=== PATIENT | female | born 1970 | race Caucasian/White ===

== ENCOUNTER 2016-09-23 04:47 | Emergency (ER) | payer OTHER ==
--- NOTE | 2016-09-23 06:50 | DIAGNOSTIC IMAGING REPORT ---
PROCEDURE: CT ABD/PELVIS WITH CONTRAST CLINICAL INDICATION: Epigastric pain x 2 days, initial encounter TECHNIQUE: 95 ml of Isovue 300 were injected intravenously and axial images were obtained of the entire abdomen and pelvis with sagittal and coronal reformations. COMPARISON: None. FINDINGS: ABDOMEN: Fluid in the ascending and transverse colon with multiple nondilated fluid filled loops of small bowel suggestive of enterocolitis. Lung bases are clear. Heart size is normal. Liver, gallbladder, pancreas, spleen, left adrenal gland and both kidneys are normal. 2.5 cm right adrenal low-density mass with dense peripheral calcification. Normal abdominal aorta. PELVIS: Normal appendix. Normal uterus and bladder. Involuting 1.5 cm left ovarian cyst and a small amount of free fluid the pelvis. Severe L5-S1 disc space narrowing. IMPRESSION: 1. Findings suggestive of enterocolitis 2. 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 Involuting left ovarian cyst with small amount of free fluid in the pelvis 4. Results discussed with Dr. Gutierrez All CT scans at this facility use dose modulation, iterative reconstruction, and/or weight-based dosing when appropriate to reduce radiation dose to as low as reasonably achievable.
--- NOTE | 2016-09-23 07:36 | ED NURSING NOTES ---
Clinical Report - Nurses [facility] [address] [place] [address] 09/23/2016 4:50 Patient: SHERRI ULLOA TRIAGE Triage time 04:55. Acuity: LEVEL 3. Chief Complaint: ABDOMINAL PAIN and NAUSEA. Alert. --04:58 Susan Hope R.N. 04:55 09/23/16. BP: 143/85. HR: 106. RR: 16. O2 saturation: 100% on room air. Temp: 98.4 F (oral). Pain level now: 5/10. Pain level at maximum: 9/10. Describes the quality as well localized. --04:58 Susan Hope R.N. Weight: 58.9 kg stated. Height/Length: 64 inches Per Patient. BMI: 22.3. --04:57 Susan Hope R.N. Medications Multivitamins Oral. --04:56 Susan Hope R.N. Allergies No Known Drug Allergy. --04:56 Susan Hope R.N. History Arrived by private vehicle. Historian: patient. Primary physician (Bud). This started yesterday. Onset. (at about 0900). 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 (last dose today at 0300). PAST MEDICAL HX: Immunizations: up-to-date. Last normal menstrual period- Sep 03. Has not received seasonal influenza immunization. SOCIAL HX: Never smoker. Occasional alcohol use. No drug use. NUTRITIONAL RISK ASSESSMENT: The nutritional risk assessment revealed no deficiencies. FUNCTIONAL ASSESSMENT: Functional assessment: no impairments noted. --04:58 Susan Hope R.N. ADDITIONAL SURGERIES: Rt breast lump--benign. --04:56 Susan Hope R.N. Interventions ID band on patient. To treatment room. --04:58 Susan Hpoe R.N. PHYSICAL ASSESSMENT Ambulatory to room. Patient gowned. GENERAL / NEURO / PSYCH: Alert. Oriented X 4. Appears in pain. RESPIRATORY: Respirations not labored. CVS: Capillary refill less than 2 seconds. SKIN: Skin is warm and dry. --04:59 Susan Hope R.N. NURSING PROGRESS NOTES Head of bed elevated. Two patient identifiers checked. Call light placed in reach. Side rails up x 1. Bed placed in lowest position. Brakes of bed on. --04:59 Susan Hope R.N. Patient ready for evaluation- notification provided. --05:00 Susan Hope R.N. 05:15 09/23/2016 Site #1 started via IV in the right forearm with an 20g angiocath, with aseptic technique and good blood return; one attempt. Blood drawn: rainbow set. Labeled in the presence of the patient and sent to the lab. Saline lock flushed with 10 mL saline (started by TONEY Whatley). --05:23 Susan Hope R.N. 05:18 09/23/2016 Started bag #1 1000 mL IV Fluids IV NS (Saline); at 1000 mL/hr over 1 hour(s) via site #1 via IV pump. Allergies verified and confirmed 5 rights. IV patency established. IV site checked: no pain, redness, or swelling. IV flushed thoroughly pre- and post-medication administration. --05:24 Susan Hope R.N. 05:19 09/23/2016 Zofran (Ondansetron HCl) IVP 8 mg given over 1 minute(s) via site #1. Allergies verified and confirmed 5 rights. IV patency established. IV site checked: no pain, redness, or swelling. IV flushed thoroughly pre- and post-medication administration. IVP given by RN. --05:24 Susan Hope R.N. 05:20 09/23/2016 Toradol IVP 30 mg given over 1 minute(s) via site #1. Allergies verified and confirmed 5 rights. IV patency established. IV site checked: no pain, redness, or swelling. IV flushed thoroughly pre- and post-medication administration. IVP given by RN. --05:25 Susan Hope R.N. 05:21 09/23/2016 Dilaudid (HYDROmorphone HCl PF) IVP 1 mg given over 1 minute(s) via site #1. Allergies verified, confirmed 5 rights and sedative warning given to the patient. IV patency established. IV site checked: no pain, redness, or swelling. IV flushed thoroughly pre- and post-medication administration. IVP given by RN. --05:25 Susan Hope R.N. Patient transported to [place] by stretcher with tech. --05:59 Susan Hope R.N. 06:35 09/23/16. BP: 99/56. HR: 71. RR: 15. O2 saturation: 98% on room air. Cao-Kerr pain scale: 11/01. --06:35 Susan Hope R.N. 06:36 09/23/2016 IV Fluids IV NS Discontinued: bag #1 completed. Total amount infused: 1000 mL. IV patency established. IV site checked: no pain, redness, or swelling. IV flushed thoroughly. --06:36 Susan Hope R.N. 07:08 09/23/16. Care transferred and report received. --07:08 Sebastian Fermin R.N. 07:13 09/23/16. BP: 109/63. HR: 71. RR: 12. O2 saturation: 100% on room air. --07:14 Sebastian Fermin R.N. 07:14 09/23/16. --07:14 Sebastian Fermin R.N. 07:15 09/23/2016 Levaquin (Levofloxacin) PO 500 mg given. Allergies verified and confirmed 5 rights. --07:15 Sebastian Fermin R.N. 07:15 09/23/2016 Flagyl (MetroNIDAZOLE) PO 500 mg given. Allergies verified and confirmed 5 rights. --07:15 Sebastian Fermin R.N. 07:46 09/23/16. Checked patient name and birthdate: patient confirmed. Clean catch urine collected with return of yellow-colored clear urine; sample sent to lab. Specimen labeled in the presence of the patient. --07:46 Magaly Barrett R.N. 07:50 09/23/2016 Site #1 removed upon discharge. Catheter intact. Manual pressure and bandage applied. --19:50 Magaly Barrett R.N. DISPOSITION / DISCHARGE Departure time: 749Sep 23 2016. Condition at departure: improved and stable. No learning barriers present. Reviewed medication(s) side effects, precautions and dosing information. Prescription(s) given to the patient. Patient verbalized understanding. Written instructions provided in Armenian. The patient was discharged by the physician. She was discharged home and accompanied by sales communications manager. She left the Emergency Department ambulatory and via private vehicle. Adhesive Bandage Making Operator driving. --09:15 Magaly Barrett R.N. 09:14 09/23/16. BP: 98/60. HR: 66. RR: 12. O2 saturation: 100% on room air. Temp: 98.4 F (oral). Pain level now: 11/01. --09:15 Magaly Barrett R.N. Locked/Released at 09/23/2016 19:51 by Magaly Barrett R.N.
--- NOTE | 2016-09-23 07:36 | ED ORDER SUMMARY ---
..... Patient: SHERRI ULLOA OrderSheet [facility] VisitID: [id number] [address] [place] [address] 45y, F Registration Date/Time: 09/23/2016 ORDER SHEET Weight: 58.9 kg (stated) Allergies: No Known Drug Allergy GENERAL ORDERS: CT Abd/Pel w Cont (No) (N/A) Urgent (05:09/23/2016 Brianne VITAL) (Ack 5:21 JIurca ER Tech1) (6:12 RCollier R.N.) CBC w Diff Urgent (05:09/23/2016 Brianne VITAL) (Ack 5:21 JIurca ER Tech1) (6:12 RCollier R.N.) CMP Urgent (05:09/23/2016 Brianne VITAL) (Ack 5:21 JIurca ER Tech1) (6:12 RCollier R.N.) UA-Culture if indicated Urgent (05:09/23/2016 Brianne VITAL) (Ack 5:21 JIurca ER Tech1) (7:44 MWinterer R.N.) Amylase Urgent (05:09/23/2016 Brianne VITAL) (Ack 5:21 JIurcpark ER Tech1) (6:12 RCollier R.N.) Lipase Urgent (:09/23/2016 Brianne VITAL) (Ack 5:21 JIurca ER Tech1) (6:12 RCollier R.N.) Urine Urgent (:09/23/2016 Brianne VITAL) (Ack 5:21 JIurca ER Tech1) (7:44 MWinterer R.N.) MEDICATION ORDERS: Levaquin PO 500 mg (NOW) (06:09/23/2016 Brianne VITAL) (Ack 7:08 JBoardley R.N.) (7:15 JBoardley R.N.) Flagyl PO 500 mg (NOW) (:09/23/2016 Brianne VITAL) (Ack 7:08 JBoardley R.N.) (7:15 JBoardley R.N.) IV FLUIDS: IV NS : initial bolus 1000 mL (1000 mL/hr), then none - (NOW) (05:09 09/23/2016 Brianne VITAL) (Ack 5:12 RCollier R.N.) (5:24 RCollier R.N.) Toradol IV 30 mg (NOW) (05:09/23/2016 Brianne VITAL) (Ack 5:12 RCollier R.N.) (5:25 RCollier R.N.) Dilaudid IV 1 mg (HIGH ALERT MEDICATION, NOW) (05:09/23/2016 Brianne VITAL) (Ack 5:12 RCollier R.N.) (5:25 RCollier R.N.) Zofran IV 8 mg (NOW) (05:09/23/2016 Brianne VITAL) (Ack 5:12 RCollier R.N.) (5:24 RCollier R.N.) ORDER SHEET NOTES: [Electronically signed by Magaly Barrett R.N. (19:51 09/23/2016)] [Electronically signed by Nano Gutierrez MD (10:19 09/30/2016)] [Electronically locked/signed by Magaly Barrett R.N. (19:51 09/23/2016)]
--- NOTE | 2016-09-23 07:36 | ED NURSING NOTES ---
Clinical Report - Nurses [facility] [address] [place] [address] 09/23/2016 4:50 Patient: SHERRI ULLOA TRIAGE Triage time 04:55. Acuity: LEVEL 3. Chief Complaint: ABDOMINAL PAIN and NAUSEA. Alert. --04:58 Susan Hope R.N. 04:55 09/23/16. BP: 143/85. HR: 106. RR: 16. O2 saturation: 100% on room air. Temp: 98.4 F (oral). Pain level now: 5/10. Pain level at maximum: 9/10. Describes the quality as well localized. --04:58 Susan Hope R.N. Weight: 58.9 kg stated. Height/Length: 64 inches Per Patient. BMI: 22.3. --04:57 Susan Hope R.N. Medications Multivitamins Oral. --04:56 Susan Hope R.N. Allergies No Known Drug Allergy. --04:56 Susan Hope R.N. History Arrived by private vehicle. Historian: patient. Primary physician (Bud). This started yesterday. Onset. (at about 0900). 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 (last dose today at 0300). PAST MEDICAL HX: Immunizations: up-to-date. Last normal menstrual period- Sep 03. Has not received seasonal influenza immunization. SOCIAL HX: Never smoker. Occasional alcohol use. No drug use. NUTRITIONAL RISK ASSESSMENT: The nutritional risk assessment revealed no deficiencies. FUNCTIONAL ASSESSMENT: Functional assessment: no impairments noted. --04:58 Susan Hope R.N. ADDITIONAL SURGERIES: Rt breast lump--benign. --04:56 Susan Hope R.N. Interventions ID band on patient. To treatment room. --04:58 Susan Hope R.N. PHYSICAL ASSESSMENT Ambulatory to room. Patient gowned. GENERAL / NEURO / PSYCH: Alert. Oriented X 4. Appears in pain. RESPIRATORY: Respirations not labored. CVS: Capillary refill less than 2 seconds. SKIN: Skin is warm and dry. --04:59 Susan Hope R.N. NURSING PROGRESS NOTES Head of bed elevated. Two patient identifiers checked. Call light placed in reach. Side rails up x 1. Bed placed in lowest position. Brakes of bed on. --04:59 Susan Hope R.N. Patient ready for evaluation- notification provided. --05:00 Susan Hope R.N. 05:15 09/23/2016 Site #1 started via IV in the right forearm with an 20g angiocath, with aseptic technique and good blood return; one attempt. Blood drawn: rainbow set. Labeled in the presence of the patient and sent to the lab. Saline lock flushed with 10 mL saline (started by TONEY Whatley). --05:23 Susan Hope R.N. 05:18 09/23/2016 Started bag #1 1000 mL IV Fluids IV NS (Saline); at 1000 mL/hr over 1 hour(s) via site #1 via IV pump. Allergies verified and confirmed 5 rights. IV patency established. IV site checked: no pain, redness, or swelling. IV flushed thoroughly pre- and post-medication administration. --05:24 Susan Hope R.N. 05:19 09/23/2016 Zofran (Ondansetron HCl) IVP 8 mg given over 1 minute(s) via site #1. Allergies verified and confirmed 5 rights. IV patency established. IV site checked: no pain, redness, or swelling. IV flushed thoroughly pre- and post-medication administration. IVP given by RN. --05:24 Susan Hope R.N. 05:20 09/23/2016 Toradol IVP 30 mg given over 1 minute(s) via site #1. Allergies verified and confirmed 5 rights. IV patency established. IV site checked: no pain, redness, or swelling. IV flushed thoroughly pre- and post-medication administration. IVP given by RN. --05:25 Susan Hope R.N. 05:21 09/23/2016 Dilaudid (HYDROmorphone HCl PF) IVP 1 mg given over 1 minute(s) via site #1. Allergies verified, confirmed 5 rights and sedative warning given to the patient. IV patency established. IV site checked: no pain, redness, or swelling. IV flushed thoroughly pre- and post-medication administration. IVP given by RN. --05:25 Susan Hope R.N. Patient transported to [place] by stretcher with tech. --05:59 Susan Hope R.N. 06:35 09/23/16. BP: 99/56. HR: 71. RR: 15. O2 saturation: 98% on room air. Cao-Kerr pain scale: 11/01. --06:35 Susan Hope R.N. 06:36 09/23/2016 IV Fluids IV NS Discontinued: bag #1 completed. Total amount infused: 1000 mL. IV patency established. IV site checked: no pain, redness, or swelling. IV flushed thoroughly. --06:36 Susan Hope R.N. 07:08 09/23/16. Care transferred and report received. --07:08 Sebastian Fermin R.N. 07:13 09/23/16. BP: 109/63. HR: 71. RR: 12. O2 saturation: 100% on room air. --07:14 Sebastian Fermin R.N. 07:14 09/23/16. --07:14 Sebastian Fermin R.N. 07:15 09/23/2016 Levaquin (Levofloxacin) PO 500 mg given. Allergies verified and confirmed 5 rights. --07:15 Sebastian Fermin R.N. 07:15 09/23/2016 Flagyl (MetroNIDAZOLE) PO 500 mg given. Allergies verified and confirmed 5 rights. --07:15 Sebastian Fermin R.N. 07:46 09/23/16. Checked patient name and birthdate: patient confirmed. Clean catch urine collected with return of yellow-colored clear urine; sample sent to lab. Specimen labeled in the presence of the patient. --07:46 Magaly Barrett R.N. 07:50 09/23/2016 Site #1 removed upon discharge. Catheter intact. Manual pressure and bandage applied. --19:50 Magaly Barrett R.N. DISPOSITION / DISCHARGE Departure time: 749Sep 23 2016. Condition at departure: improved and stable. No learning barriers present. Reviewed medication(s) side effects, precautions and dosing information. Prescription(s) given to the patient. Patient verbalized understanding. Written instructions provided in Lao. The patient was discharged by the physician. She was discharged home and accompanied by instructor apparel manufacture. She left the Emergency Department ambulatory and via private vehicle. Flight Instructor driving. --09:15 Magaly Barrett R.N. 09:14 09/23/16. BP: 98/60. HR: 66. RR: 12. O2 saturation: 100% on room air. Temp: 98.4 F (oral). Pain level now: 11/01. --09:15 Magaly Barrett R.N. Locked/Released at 09/23/2016 19:51 by Magaly Barrett R.N.
--- NOTE | 2016-09-23 07:36 | ED CLINICAL REPORT ---
Clinical Report - Physicians/Mid Levels [facility] [address] [place] [address] 09/23/2016 4:50 Patient: SHERIR ULLOA Time Seen: 04:54. Arrived- By private vehicle. Historian- patient. HISTORY OF PRESENT ILLNESS Chief Complaint: ABDOMINAL PAIN. At its maximum, severity described as moderate. When seen in the E.D., severity described as moderate. Modifying factors. Not worsened by anything. Not relieved by anything. This started today and is still present. It is described as "pain" and it is described as located in the right abdomen. The patient has had nausea, loss of appetite and vomiting. No diarrhea. Similar symptoms previously: Occasionally. Recent medical care: Not recently seen/assessed. REVIEW OF SYSTEMS No constipation, black stools, hematemesis, difficulty with urination or pain with urination. No urinary frequency, bloody stools, fever, headache or sore throat. No blurred vision, chest pain, difficulty breathing, cough or joint pain. No skin rash, chills or back pain. Denies current . All systems otherwise negative, except as recorded above. PAST HISTORY Problems: Back Pain. LNMP - Last Normal Menstrual Period. Immunizations. Additional Surgeries: Rt breast lump--benign. Medications: Multivitamins Oral. Allergies: No Known Drug Allergy. SOCIAL HISTORY Never smoker. Occasional alcohol use. No drug use. ADDITIONAL NOTES The nursing notes have been reviewed. PHYSICAL EXAM Vital Signs: 09/23/2016 04:55 BP: 143/85. HR: 106. RR: 16. O2 saturation: 100%. Temp: 98.4 F. Pain level now: 5/10. Have been reviewed. Appearance: Alert. Oriented X3. No acute distress. (PT appears moderately uncomfortable.). Eyes: Pupils equal, round and reactive to light. Eyes normal inspection. ENT: Nose normal. Neck: Normal inspection. Neck supple. CVS: Normal heart rate and rhythm. Heart sounds normal. Pulses normal. Respiratory: No respiratory distress. Breath sounds normal. Chest nontender. Abdomen: Soft. Moderate tenderness in the right lower quadrant. No guarding or rebound tenderness. Back: Normal inspection. No CVA tenderness. Skin: Skin warm and dry. Normal skin color. No rash. Normal skin turgor. Extremities: Extremities exhibit normal ROM. No lower extremity edema. Neuro: Oriented X 3. No motor deficit. No sensory deficit. LABS, X-RAYS, AND EKG Abdominal CT: ABDOMEN: Fluid in the ascending and transverse colon with multiple nondilated fluid filled loops of small bowel suggestive of enterocolitis. Lung bases are clear. Heart size is normal. Liver, gallbladder, pancreas, spleen, left adrenal gland and both kidneys are normal. 2.5 cm right adrenal low-density mass with dense peripheral calcification. Normal abdominal aorta. PELVIS: Normal appendix. Normal uterus and bladder. Involuting 1.5 cm left ovarian cyst and a small amount of free fluid the pelvis. Severe L5-S1 disc space narrowing. IMPRESSION: 1. Findings suggestive of enterocolitis 2. 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 Involuting left ovarian cyst with small amount of free fluid in the pelvis. Study type: abdomen and pelvis. Abdominal CT performed with IV contrast. The study was independently viewed by me, interpreted by the radiologist and contemporaneously by me and discussed with the radiologist. Prior studies were not available for comparison. Laboratory Tests: CBC w Diff: (AIDAN: 09/23/2016 04:58) ( MsgRcvd 09/23/2016 05:30) Final results Test Result Flag Units (Reference) WHITE BLOOD COUNT 8.6 K/uL (4.5-11.5) RED BLOOD COUNT 5.18 M/uL (4.00-5.20) HEMOGLOBIN 15.1 gm/dL (12.0-16.0) HEMATOCRIT 46.0 % (36.0-46.0) MEAN CELL VOLUME 89 fL (80-100) MEAN CORPUSCULAR HGB 29 pg (26-34) MEAN CORPUSCULAR HGB CONC 33 g/dL (31-37) RED CELL DISTRIBUTION WIDTH 13.3 % (11.6-14.8) PLATELET COUNT 290 K/uL (150-400) NEUTROPHIL % 84.4 H % (50-75) LYMPH % 9.8 L % (25-40) MONO % 5.3 % (3-14) EOSINOPHIL % 0.4 % (0-4) BASOPHIL % 0.1 % (0-2) CMP: (AIDAN: 09/23/2016 04:58) ( MsgRcvd 09/23/2016 05:40) Final results Test Result Flag Units (Reference) GLUCOSE 106 mg/dL (70-110) BUN 10 mg/dL (7-18) CREATININE 0.7 mg/dL (0.6-1.3) Estimated GFR >60 mL/min Estimated GFR- >60 mL/min Note: Persistent reduction over 3 months in eGFR<60 mL/min/1.73 m2 defines CKD. Patients with eGFR values>=60 mL/min/1.73 m2 may also have CKD if evidence ofpersistent proteinuria. Additional information may be foundat www.kidney.org. SODIUM 138 mmol/L (136-145) POTASSIUM 3.6 mmol/L (3.5-5.1) CHLORIDE 103 mmol/L (98-107) CARBON DIOXIDE 26 mmol/L (21-32) CALCIUM 8.4 L mg/dL (8.5-10.1) TOTAL PROTEIN 7.3 g/dL (6.4-8.2) ALBUMIN 3.8 g/dL (3.3-5.0) BILIRUBIN, TOTAL 0.5 mg/dL (0.0-1.0) ALKALINE PHOSPHATASE 63 U/L (46-116) AST (SGOT) 14 L U/L (15-37) ALT (SGPT) 23 U/L (12-78) LIPASE 305 U/L (73-393) AMYLASE 53 U/L (25-115) . Pulse Oximetry: 09/23/2016 04:55 O2 saturation: 100%. (FIO2 - room air). Interpretation: normal. PROGRESS AND PROCEDURES Course of Care: PT was treated with IV fluids, Toradol, Dilaudid, and Zofran, for symptomatic relief. She was worked up for her RLQ pain, and found to have colitis. She was given Levaquin and Flagyl for this. Patient counseled in person regarding the patient's stable condition, test results, diagnosis and need for follow-up. Concerns were addressed. Old medical records reviewed. Disposition: Discharged. Condition: stable and improved. CLINICAL IMPRESSION Acute infectious colitis. INSTRUCTIONS (Your CT shows inflammation of your large intestine, likely from overgrowth of the natural bacteria in the area. You have been started on antibiotics for this, and will need to take them at home, as well.). Warnings: SEDATIVE MEDICATION: You were given sedative medication during your visit. Do not drive or operate dangerous machinery for 6 hours. GENERAL WARNINGS: Return or contact your physician immediately if your condition worsens or changes unexpectedly, if not improving as expected, or if other problems arise. Your Current Medications: CONTINUE TAKING THE FOLLOWING MEDICATIONS: Multivitamins Oral. Prescription Medications: Hydrocodone/APAP 5mg / 325mg: take 1-2 orally every 6 hours as needed for pain. Dispense fifteen (15). No refill. Zofran (orally disintegrating tablets) 4 mg: take 1-2 orally every 6 hours as needed for nausea. Dispense fifteen (15). No refill. Substitution is permissible. Flagyl 500 mg: Take 1 tablet orally every 12 hours for 10 days. No refill. Substitution is permissible Levaquin 500 mg: take 1 tab orally every day for 10 days. No refills. Substitution is permissible. Follow-up: Follow up with your doctor in seven days if not better. Understanding of the discharge instructions verbalized by patient and family. (Electronically signed by Nano Gutierrez MD 09/30/2016 10:19)
--- NOTE | 2016-09-23 07:36 | ED ORDER SUMMARY ---
..... Patient: SHERRI ULLOA OrderSheet [facility] VisitID: [id number] [address] [place] [address] 45y, F Registration Date/Time: 09/23/2016 ORDER SHEET Weight: 58.9 kg (stated) Allergies: No Known Drug Allergy GENERAL ORDERS: CT Abd/Pel w Cont (No) (N/A) Urgent (05:09/23/2016 Brianne VITAL) (Ack 5:21 JIurca ER Tech1) (6:12 RCollier R.N.) CBC w Diff Urgent (05:09/23/2016 Brianne VITAL) (Ack 5:21 JIurca ER Tech1) (6:12 RCollier R.N.) CMP Urgent (05:09/23/2016 Brianne VITAL) (Ack 5:21 JIurca ER Tech1) (6:12 RCollier R.N.) UA-Culture if indicated Urgent (05:09/23/2016 Brianne VITAL) (Ack 5:21 JIurca ER Tech1) (7:44 MWinterer R.N.) Amylase Urgent (05:09/23/2016 Brianne VITAL) (Ack 5:21 JIurcpark ER Tech1) (6:12 RCollier R.N.) Lipase Urgent (:09/23/2016 Brianne VITAL) (Ack 5:21 JIurca ER Tech1) (6:12 RCollier R.N.) Urine Urgent (:09/23/2016 Brianne VITAL) (Ack 5:21 JIurca ER Tech1) (7:44 MWinterer R.N.) MEDICATION ORDERS: Levaquin PO 500 mg (NOW) (06:09/23/2016 Brianne VITAL) (Ack 7:08 JBoardley R.N.) (7:15 JBoardley R.N.) Flagyl PO 500 mg (NOW) (:09/23/2016 Brianne VITAL) (Ack 7:08 JBoardley R.N.) (7:15 JBoardley R.N.) IV FLUIDS: IV NS : initial bolus 1000 mL (1000 mL/hr), then none - (NOW) (05:09 09/23/2016 Brianne VITAL) (Ack 5:12 RCollier R.N.) (5:24 RCollier R.N.) Toradol IV 30 mg (NOW) (05:09/23/2016 Brianne VITAL) (Ack 5:12 RCollier R.N.) (5:25 RCollier R.N.) Dilaudid IV 1 mg (HIGH ALERT MEDICATION, NOW) (05:09/23/2016 Brianne VITAL) (Ack 5:12 RCollier R.N.) (5:25 RCollier R.N.) Zofran IV 8 mg (NOW) (05:09/23/2016 Brianne VITAL) (Ack 5:12 RCollier R.N.) (5:24 RCollier R.N.) ORDER SHEET NOTES: [Electronically signed by Magaly Barrett R.N. (19:51 09/23/2016)] [Electronically signed by Nano Gutierrez MD (10:19 09/30/2016)] [Electronically locked/signed by Magaly Barrett R.N. (19:51 09/23/2016)]
--- NOTE | 2016-09-30 10:20 | ED DISCHARGE INSTRUCTIONS ---
Patient: SHERRI ULLOA General Instructions [facility] VisitID: [id number] [address] [place] [address] 45y, F Registration Date/Time: 09/23/2016 Acute infectious colitis. INSTRUCTIONS (Your CT shows inflammation of your large intestine, likely from overgrowth of the natural bacteria in the area. You have been started on antibiotics for this, and will need to take them at home, as well.). Warnings: SEDATIVE MEDICATION: You were given sedative medication during your visit. Do not drive or operate dangerous machinery for 6 hours. GENERAL WARNINGS: Return or contact your physician immediately if your condition worsens or changes unexpectedly, if not improving as expected, or if other problems arise. Your Current Medications: CONTINUE TAKING THE FOLLOWING MEDICATIONS: Multivitamins Oral. Prescription Medications: Hydrocodone/APAP 5mg / 325mg: take 1-2 orally every 6 hours as needed for pain. Dispense fifteen (15). No refill. Zofran (orally disintegrating tablets) 4 mg: take 1-2 orally every 6 hours as needed for nausea. Dispense fifteen (15). No refill. Substitution is permissible. Flagyl 500 mg: Take 1 tablet orally every 12 hours for 10 days. No refill. Substitution is permissible Levaquin 500 mg: take 1 tab orally every day for 10 days. No refills. Substitution is permissible. Follow-up: Follow up with your doctor in seven days if not better. Understanding of the discharge instructions verbalized by patient and family. (Electronically signed by Nano Gutierrez MD 09/30/2016 10:19)
--- NOTE | 2016-09-30 10:20 | ED DISCHARGE INSTRUCTIONS ---
Patient: SHERRI ULLOA General Instructions [facility] VisitID: [id number] [address] [place] [address] 45y, F Registration Date/Time: 09/23/2016 Acute infectious colitis. INSTRUCTIONS (Your CT shows inflammation of your large intestine, likely from overgrowth of the natural bacteria in the area. You have been started on antibiotics for this, and will need to take them at home, as well.). Warnings: SEDATIVE MEDICATION: You were given sedative medication during your visit. Do not drive or operate dangerous machinery for 6 hours. GENERAL WARNINGS: Return or contact your physician immediately if your condition worsens or changes unexpectedly, if not improving as expected, or if other problems arise. Your Current Medications: CONTINUE TAKING THE FOLLOWING MEDICATIONS: Multivitamins Oral. Prescription Medications: Hydrocodone/APAP 5mg / 325mg: take 1-2 orally every 6 hours as needed for pain. Dispense fifteen (15). No refill. Zofran (orally disintegrating tablets) 4 mg: take 1-2 orally every 6 hours as needed for nausea. Dispense fifteen (15). No refill. Substitution is permissible. Flagyl 500 mg: Take 1 tablet orally every 12 hours for 10 days. No refill. Substitution is permissible Levaquin 500 mg: take 1 tab orally every day for 10 days. No refills. Substitution is permissible. Follow-up: Follow up with your doctor in seven days if not better. Understanding of the discharge instructions verbalized by patient and family. (Electronically signed by Nano Gutierrez MD 09/30/2016 10:19)
--- NOTE | 2016-09-30 10:20 | ED MED RECONCILIATION SUMMARY ---
Patient: SHERRI ULLOA Medication Reconciliation Report [facility] VisitID: [id number] [address] [place] [place] [address] 45y, F Registration Date/Time: 09/23/2016 Weight: 58.9 kg Height/Length: 64 in. BMI: 22.3 ALLERGIES: No Known Drug Allergy The patient's Home Medications are listed below: CONTINUE TAKING THE FOLLOWING MEDICATIONS: Multivitamins Oral The source(s) of the original Home Medication information: Not obtained. The following Medications were given to the patient in the Emergency Department: IV NS IV Fluids bolus 0, then 1000 mL/hr, administered: 09/23/2016 5:18:00 AM Zofran [IVP] IVP 8 mg, administered: 09/23/2016 5:19:00 AM Toradol [IVP] IVP 30 mg, administered: 09/23/2016 5:20:00 AM Dilaudid [IVP] IVP 1 mg, administered: 09/23/2016 5:21:00 AM Levaquin [PO] PO 500 mg, administered: 09/23/2016 7:15:00 AM Flagyl [PO] PO 500 mg, administered: 09/23/2016 7:15:00 AM The following Medications were prescribed to the patient: Hydrocodone/APAP 5mg / 325mg: take 1-2 orally every 6 hours as needed for pain. Dispense fifteen (15). No refill. -- Nano Gutierrez MD Zofran (orally disintegrating tablets) 4 mg: take 1-2 orally every 6 hours as needed for nausea. Dispense fifteen (15). No refill. Substitution is permissible. -- Nano Gutierrez MD Flagyl 500 mg: Take 1 tablet orally every 12 hours for 10 days. No refill. Substitution is permissible -- Nano Gutierrez MD Levaquin 500 mg: take 1 tab orally every day for 10 days. No refills. Substitution is permissible. -- Nano Gutierrez MD
--- NOTE | 2016-09-30 10:20 | ED MAR SUMMARY ---
..... Medication Administration Record [facility] [address] [place] [address] Patient: SHERRI ULLOA Visit ID: [id number] 45y, F Weight: 58.9 kg Height/Length: 64 in BMI: 22.3 ALLERGIES: No Known Drug Allergy Start 05:18 09/23/2016 Susan Hope R.N., Stop 06:36 09/23/2016 Susan Hope R.N. Medication Administered: IV NS (SALINE), Dose: IV Fluids over 1 hour(s), Rate: 1000 mL/hr, Dispensed: 1000 mL bag, Site: #1 right forearm. Medication Ordered: IV NS : initial bolus 1000 mL (1000 mL/hr), then none - (NOW). Given 05:19 09/23/2016 Susan Hope R.N. Medication Administered: ZOFRAN [IVP] (ONDANSETRON HCL), Dose: 8 mg IVP over 1 minute(s), Site: #1 right forearm. Medication Ordered: Zofran IV 8 mg (NOW). Given 05:20 09/23/2016 Susan Hope R.N. Medication Administered: TORADOL [IVP], Dose: 30 mg IVP over 1 minute(s), Site: #1 right forearm. Medication Ordered: Toradol IV 30 mg (NOW). Given 05:21 09/23/2016 Susan Hope R.N. Medication Administered: DILAUDID [IVP] (HYDROMORPHONE HCL PF), Dose: 1 mg IVP over 1 minute(s), Site: #1 right forearm. Medication Ordered: Dilaudid IV 1 mg (HIGH ALERT MEDICATION, NOW). Given 07:15 09/23/2016 Sebastian Fermin R.N. Medication Administered: LEVAQUIN [PO] (LEVOFLOXACIN), Dose: 500 mg PO. Medication Ordered: Levaquin PO 500 mg (NOW). Given 07:09/23/2016 Sebastian Fermin R.N. Medication Administered: FLAGYL [PO] (METRONIDAZOLE), Dose: 500 mg PO. Medication Ordered: Flagyl PO 500 mg (NOW).
--- NOTE | 2016-09-30 10:20 | ED MAR SUMMARY ---
..... Medication Administration Record [facility] [address] [place] [address] Patient: SHERRI ULLOA Visit ID: [id number] 45y, F Weight: 58.9 kg Height/Length: 64 in BMI: 22.3 ALLERGIES: No Known Drug Allergy Start 05:18 09/23/2016 Susan Hope R.N., Stop 06:36 09/23/2016 Susan Hope R.N. Medication Administered: IV NS (SALINE), Dose: IV Fluids over 1 hour(s), Rate: 1000 mL/hr, Dispensed: 1000 mL bag, Site: #1 right forearm. Medication Ordered: IV NS : initial bolus 1000 mL (1000 mL/hr), then none - (NOW). Given 05:19 09/23/2016 Susan Hope R.N. Medication Administered: ZOFRAN [IVP] (ONDANSETRON HCL), Dose: 8 mg IVP over 1 minute(s), Site: #1 right forearm. Medication Ordered: Zofran IV 8 mg (NOW). Given 05:20 09/23/2016 Susan Hope R.N. Medication Administered: TORADOL [IVP], Dose: 30 mg IVP over 1 minute(s), Site: #1 right forearm. Medication Ordered: Toradol IV 30 mg (NOW). Given 05:21 09/23/2016 Susan Hope R.N. Medication Administered: DILAUDID [IVP] (HYDROMORPHONE HCL PF), Dose: 1 mg IVP over 1 minute(s), Site: #1 right forearm. Medication Ordered: Dilaudid IV 1 mg (HIGH ALERT MEDICATION, NOW). Given 07:15 09/23/2016 Sebastian Fermin R.N. Medication Administered: LEVAQUIN [PO] (LEVOFLOXACIN), Dose: 500 mg PO. Medication Ordered: Levaquin PO 500 mg (NOW). Given 07:09/23/2016 Sebastian Fermin R.N. Medication Administered: FLAGYL [PO] (METRONIDAZOLE), Dose: 500 mg PO. Medication Ordered: Flagyl PO 500 mg (NOW).
--- NOTE | 2016-09-30 10:20 | ED MED RECONCILIATION SUMMARY ---
Patient: SHERRI ULLOA Medication Reconciliation Report [facility] VisitID: [id number] [address] [place] [address] 45y, F Registration Date/Time: 09/23/2016 Weight: 58.9 kg Height/Length: 64 in. BMI: 22.3 ALLERGIES: No Known Drug Allergy The patient's Home Medications are listed below: CONTINUE TAKING THE FOLLOWING MEDICATIONS: Multivitamins Oral The source(s) of the original Home Medication information: Not obtained. The following Medications were given to the patient in the Emergency Department: IV NS IV Fluids bolus 0, then 1000 mL/hr, administered: 09/23/2016 5:18:00 AM Zofran [IVP] IVP 8 mg, administered: 09/23/2016 5:19:00 AM Toradol [IVP] IVP 30 mg, administered: 09/23/2016 5:20:00 AM Dilaudid [IVP] IVP 1 mg, administered: 09/23/2016 5:21:00 AM Levaquin [PO] PO 500 mg, administered: 09/23/2016 7:15:00 AM Flagyl [PO] PO 500 mg, administered: 09/23/2016 7:15:00 AM The following Medications were prescribed to the patient: Hydrocodone/APAP 5mg / 325mg: take 1-2 orally every 6 hours as needed for pain. Dispense fifteen (15). No refill. -- Nano Gutierrez MD Zofran (orally disintegrating tablets) 4 mg: take 1-2 orally every 6 hours as needed for nausea. Dispense fifteen (15). No refill. Substitution is permissible. -- Nano Gutierrez MD Flagyl 500 mg: Take 1 tablet orally every 12 hours for 10 days. No refill. Substitution is permissible -- Nano Gutierrez MD Levaquin 500 mg: take 1 tab orally every day for 10 days. No refills. Substitution is permissible. -- Nano Gutierrez MD
== END 2016-09-23 07:50 | disposition home or self-care (01) ==
LOC: ED SRH 04:47
DX: A09 Infectious gastroenteritis and colitis, unspecified (principal)
CPT/HCPCS: 90004; 90100; 92235; 92530; 93070; 95059

== ENCOUNTER 2016-10-07 10:48 | Outpatient (CLI) | payer OTHER ==
--- NOTE | 2016-10-07 14:03 | DIAGNOSTIC IMAGING REPORT ---
PROCEDURE: CT ABDOMEN W/WO CONTRAST INDICATION: ADRENAL INCIDENTALOMA follow-up TECHNIQUE: Axial scans obtained through the adrenal glands before and after 100 ml Isovue 300 IV. Coronal and sagittal re-formations obtained . COMPARISON: CT abdomen/pelvis 09/23/2016 FINDINGS: There is a 2.4 cm right adrenal mass with dense peripheral calcifications which centrally measures 20 HU on the noncontrast images, 29 HU on the portal venous phase and 21 HU on the 15-minute delayed images. Absolute adrenal washout calculation suggests an adrenal adenoma. Remainder of the abdomen is unremarkable. IMPRESSION: 1. 2.4 cm adrenal mass with dense peripheral calcifications. Adrenal washout suggests an adrenal adenoma. Recommend follow-up CT scan in 1 year.
== END 2016-10-07 23:00 ==
LOC: CT SRH 10:48
DX: D35.01 Benign neoplasm of right adrenal gland (principal)

== ENCOUNTER 2016-12-25 13:47 | Outpatient (CLI) | payer OTHER ==
--- NOTE | 2016-12-25 15:13 | DIAGNOSTIC IMAGING REPORT ---
PROCEDURE: MG BILATERAL SCREENING W/CAD INDICATION: Pain. Family history breast carcinoma (sister). TECHNIQUE: Bilateral CC and MLO digital views. COMPARISON: Compared to 08/02/2014, 04/14/2013, 04/22/2012, and 04/14/2012. FINDINGS: Computer-aided detection applied. Dense parenchymal pattern with a few dystrophic calcifications. No change. IMPRESSION: 1. Negative mammogram. RESULT CODE: 1- Negative. A. A negative report should not delay biopsy if a dominant or clinically suspicious mass is present. 10-15% of cancers are not identified by x-ray. B. A negative report may reinforce clinical impression. C. Adenosis and dense breasts may obscure an underlying neoplasm. D. False positive reports average 6-10%. E.. A yearly screening mammogram is recommended. A reminder letter will be scheduled.
== END 2016-12-25 23:00 ==
LOC: MAM SRH 13:47
DX: Z12.31 Encounter for screening mammogram for malignant neoplasm of breast (principal); Z80.3 Family history of malignant neoplasm of breast